=== PATIENT | female | born 1975 | race Caucasian/White ===

== ENCOUNTER 2021-04-25 08:44 | Day surgery (SDC) | payer BC ==
[~2021-04-25] VITALS: Ht 165.1 cm; Wt 84.3 kg
[2021-04-25 09:44] VITALS: BP 130/87
[2021-04-25 09:44] LABS: HCG UR SG 1.027 (1.003-1.030)
[2021-04-25] MEDS ORDERED: BUPIVACAINE/PF 0.25% ONE (09:48)
[2021-04-25] MEDS ORDERED: HYDROcodone/APAP 7.5-325MG/15ML UDC PO PRN (10:00)
[2021-04-25] MEDS ORDERED: CHLORHEXIDINE 15 ML UDC ONE (10:00)
[2021-04-25] MEDS ORDERED: LACTATED RINGERS 1,000 ML IV SCH ×2 (10:00→14:30)
[2021-04-25] MEDS ORDERED: CHLORHEXIDINE 15 ML UDC PO ONE (10:00)
[2021-04-25] MEDS ORDERED: PROMETHAZINE 25 MG/ML, 1ML IVPush PRN (10:00)
[2021-04-25] MEDS ORDERED: MEPERIDINE/PF 25MG/0.5ML IVPush PRN (10:00)
[2021-04-25] MEDS ORDERED: HYDROmorphone 1 MG/ML, 1ML INJ IVPush PRN (10:00)
[2021-04-25] MEDS ORDERED: OXYcodone 5 MG/5 ML ORAL.SOL UDC PO PRN (10:00)
[2021-04-25] MEDS ORDERED: ONDANSETRON 2MG/ML, 2ML IVPush PRN ×2 (10:00→14:30)
[2021-04-25] MEDS ORDERED: NONE PER PT (10:02)
[2021-04-25] MEDS ORDERED: FLUORESCEIN SODIUM 500 MG/5 ML ONE (11:29)
[2021-04-25] MEDS ORDERED: FENTANYL PF 100 MCG/2ML ONE (12:24)
[2021-04-25] MEDS: FENTANYL PF 100 MCG/2ML IV PRN ×4 (12:26→13:23)
[2021-04-25] MEDS ORDERED: HYDROcodone/APAP 7.5-325MG/15ML UDC ONE (12:58)
[2021-04-25] MEDS ORDERED: PROMETHAZINE 25 MG SUPP PR ONE (14:30)
[2021-04-25] MEDS ORDERED: HYDROcodone/APAP 5/325 TABLET PO PRN (14:30)
[2021-04-25] MEDS ORDERED: IBUPROFEN 600 MG TABLET PO PRN (14:30)
== END 2021-04-25 16:20 | disposition home or self-care (01) ==
LOC: OUT 08:44
PROVIDERS: ATTEND Obstetrics & Gynecology Female Pelvic Medicine and Reconstructive Surgery
DX: N92.0 Excessive and frequent menstruation with regular cycle (principal); N94.6 Dysmenorrhea, unspecified; N39.3 Stress incontinence (female) (male); N84.0 Polyp of corpus uteri
CPT/HCPCS: 58552; 81025; 88307; J3010; J7120; S2900